=== PATIENT | male | born 1955 | race African-American/Black ===

== ENCOUNTER 2021-09-21 18:50 | Emergency (ER) | payer OTHER ==
[2021-09-21 18:57] VITALS: BP 139/80; PULSE 74; TEMP 98.1; BMI 31.9
[2021-09-21 20:19] LABS: ALBUMIN 4.4 g/dl (3.4-5.0); BILIRUBIN,TOTAL 0.5 mg/dl (0.2-1); CALCIUM 9.3 mg/dl (8.5-10); CREATININE 0.8 mg/dl (0.55-1.3); TOT PROT 7.2 g/dl (6.4-8.2)
[2021-09-21] MEDS ORDERED: KETOROLAC TROMETHAMINE 30 MG/1 ML VIAL IVPUSH ONE (20:32)
[2021-09-21] MEDS ORDERED: KETOROLAC TROMETHAMINE 30 MG/1 ML VIAL ONE (20:40)
[2021-09-21 21:38] LABS: BASO % 1.1 % (0-2.0); EOS % 2.6 % (0-4.5); HEMATOCRIT 43.8 % (35.4-49); HEMOGLOBIN 14.3 GM/dL (11.7-16.9); LYMPH % 22.3 % (8-40); MCH 26.3 pg (25.7-33.7); MCHC 32.7 g/dl (32.0-35.9); MEAN CELL VOLUME 80.5 fl (80-96); MEAN PLT VOLUME 7.8 fl (7.5-11.1); MONO % 8.4 % (3.8-10.2); NEUT % 65.6 % (42.8-82.8); PLATELET COUNT 231 10^3/uL (134-434); RBC 5.44 M/mm3 (4.00-5.60); RDW 14.7 % (11.9-15.9); WHITE BLOOD COUNT 5.8 K/mm3 (4.0-10.0)
== END 2021-09-21 22:30 | disposition home or self-care (01) ==
LOC: FER 18:50
PROC: 3E033GC Introduction of Other Therapeutic Substance into Peripheral Vein, Percutaneous Approach (ICD-10-PCS; principal; 2021-09-21)
DX: S70.01XA Contusion of right hip, initial encounter (principal); S70.11XA Contusion of right thigh, initial encounter; V03.10XA Pedestrian on foot injured in collision with car, pick-up truck or van in traffic accident, initial encounter
CPT/HCPCS: 36415; 73523-TC-FY; 73552-TC-RT-FY; 74177-TC; 80053; 85025; 99285-25; Q9967